=== PATIENT | female | born 1985 | race Hispanic/Latino ===

== ENCOUNTER 2019-05-17 23:25 | Emergency (ER) | payer SELFPAY ==
[2019-05-18] MEDS ORDERED: TETANUS & DIPHTHERIA TOX,ADULT 0.5 ML VIAL ONE (00:14)
[2019-05-18] MEDS ORDERED: HYDROCODONE/APAP 10/325 TAB ONE (00:14)
[2019-05-18] MEDS ORDERED: AMOX/K CLAV 875 MG TAB ONE (00:14)
[2019-05-18] MEDS ORDERED: LIDOCAINE 1% 20 ML MDV ONE (00:50)
[2019-05-18] MEDS ORDERED: FENTANYL CITR 100 MCG/2 ML ONE (01:30)
--- NOTE | 2019-05-18 01:59 | EDPHYS ---
Physician Documentation [facility] Name: Emelia Haskins Age: 33 yrs Sex: Female : 1985 Arrival Date: 05/17/2019 Time: 23:37 Bed 7 Private MD: ED Physician Ryan Teresa HPI: 05/17 23:47 This 33 yrs old Female presents to ER via Ambulatory with complaints of Dog jmm Bite. 23:47 The patient was bitten on the left quadriceps. Onset: The symptoms/episode jmm began/occurred acutely, just prior to arrival. Animal information: is unknown. 23:47 Secondary to the bite the patient reports multiple lacerations. jmm 23:47 Associated signs and symptoms: Pertinent positives: pain at site, Pertinent negatives: jmm bony tenderness, fever, loss of consciousness. This is a 33 year old female with no chronic medical conditions that presents to the ED with complaints of left leg pain. patient states she was [place] . 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 - Social history:: Smoking status: Patient/guardian denies using tobacco. - Ebola Screening: : No symptoms or risks identified at this time. ROS: 23:47 Constitutional: Negative for fever, chills, and weight loss, Cardiovascular: Negative jmm for chest pain, palpitations, and edema, Respiratory: Negative for shortness of breath, cough, wheezing, and pleuritic chest pain. 23:47 MS/extremity: Positive for pain, swelling. 23:47 All other systems are negative. Exam: 23:47 Constitutional: This is a well developed, well nourished patient who is awake, alert, jmm and in no acute distress. Head/Face: atraumatic. Eyes: EOMI, no conjunctival erythema appreciated ENT: Moist Mucus Membranes Neck: Trachea midline, Supple Chest/axilla: Normal chest wall appearance and motion. Cardiovascular: Regular rate and rhythm. No edema appreciated Respiratory: Normal respirations, no respiratory distress appreciated Abdomen/GI: Non distended, soft Back: Normal ROM 23:47 Musculoskeletal/extremity: 2 cm laceration noted to the left thigh, smaller lacerations noted medially, no active bleeding appreciated. 23:47 Skin: lacerations noted to the left thigh. 23:47 Neuro: Orientation: is normal, Mentation: is normal, Memory: is normal. 23:47 Psych: Behavior/mood is pleasant, cooperative. Vital Signs: 23:48 BP 149 / 96; Pulse 107; Resp 18 S; Temp 98.5(O); Pulse Ox 100% on R/A; Weight 92.99 kg bb (R); Height 5 ft. 1 in. (154.94 cm) (R); Pain 8/10; 05/18 00:22 BP 126 / 74; Pulse 124; Pulse Ox 100% on R/A; ak1 01:50 BP 123 / 79; Pulse 83; Resp 16 S; Temp 98.3(O); Pulse Ox 98% on R/A; Pain 0/10; bb 05/17 23:48 Body Mass Index 38.73 (92.99 kg, 154.94 cm) bb MDM: 05/17 23:47 Patient medically screened. [facility] 05/18 01:57 Data reviewed: vital signs, nurses notes. Counseling: I had a detailed discussion with candi the patient and/or guardian regarding: the historical points, exam findings, and any diagnostic results supporting the discharge/admit diagnosis, radiology results, the need for outpatient follow up, to return to the emergency department if symptoms worsen or persist or if there are any questions or concerns that arise at home. 01:57 ED course: Wound copiously irrigated. patient advised of the risk of infection and jmm given strict return precautions. . 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 Exp: ak1 01/26/2021. Lot #: [id number]. } Route: IM; Site: right deltoid; 00:52 Follow up: Response: No adverse reaction bb 00:07 Drug: Augmentin 875 mg Route: PO; ak1 00:53 Follow up: Response: No adverse reaction bb 00:45 Drug: Lidocaine (1 %) 20 ml {Note: administered by Primo MAGDALENO to affected area.} bb Volume: 20 ml; Route: Infiltration; 00:53 Follow up: Response: No adverse reaction bb 01:19 Drug: fentaNYL (PF) 50 mcg Route: IM; Site: right ventrogluteal; bb 01:49 Follow up: Response: No adverse reaction; Pain is decreased bb Disposition: 08:24 Co-signature as Attending Physician, Ryan Teresa MD I agree with the assessment and rebeka plan of care. Disposition: 05/18/19 01:58 Discharged to Home. Impression: Dog Bite. - Condition is Stable. - Discharge Instructions: Animal Bite. - Prescriptions for Augmentin 875- 125 mg Oral Tablet - take 1 tablet by ORAL route every 12 hours for 10 days; 20 tablet. - Medication Reconciliation Form, Thank You Letter, Antibiotic Education, Prescription Opioid Use, Work release form form. - Follow up: Mikel Foote MD; When: 2 - 3 days; Reason: Recheck today's complaints, Continuance of care, Re-evaluation by your physician. Signatures: Dispatcher [employer] EDMS Ryan Teresa MD MD cha Mickail, Joel, PA PA jmm Ballard, Brenda, RN RN Joann Curran RN RN ak1 Corrections: (The following items were deleted from the chart) 02:12 01:58 05/18/2019 01:58 Discharged to Home. Impression: Dog Bite. Condition is Stable. ak1 Forms are Medication Reconciliation Form, Thank You Letter, Antibiotic Education, Prescription Opioid Use. Follow up: Mikel Foote; When: 2 - 3 days; Reason: Recheck today's complaints, Continuance of care, Re-evaluation by your physician. candi
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
[2019-05-18 03:19] VITALS: BP 123/79; TEMP 98.3; O2SAT 98
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
== END 2019-05-18 02:12 | disposition home or self-care (01) ==
LOC: ER 23:25
DX: S70.372A Other superficial bite of left thigh, initial encounter (principal); W54.0XXA Bitten by dog, initial encounter; Y93.02 Activity, running; Y92.832 Beach as the place of occurrence of the external cause; Z23 Encounter for immunization
CPT/HCPCS: 90471; 96372; 99284; J3010

== ENCOUNTER 2019-09-03 15:20 | Emergency (ER) | payer SELFPAY ==
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
[2019-09-03 19:12] VITALS: BP 153/85; TEMP 97.8; O2SAT 100
== END 2019-09-03 18:20 | disposition home or self-care (01) ==
LOC: ER 15:20
DX: G89.11 Acute pain due to trauma (principal); V43.53XA Car driver injured in collision with pick-up truck in traffic accident, initial encounter; Y93.89 Activity, other specified; Y92.410 Unspecified street and highway as the place of occurrence of the external cause
CPT/HCPCS: 71046; 72040; 99283

== ENCOUNTER → 2023-12-22 | Emergency (ER) | payer SELFPAY ==
[~2023-12-22] MED LIST: ASPIRIN 81 MG CHEWABLE TABLET ONE; FENTANYL CITR 100 MCG/2 ML ONE; LORazepam 2 MG/ML VIAL ONE; MORPHINE 2 MG/ML SYR ONE; ONDANSETRON 4 MG/2 ML VIAL ONE; POTASSIUM CL SA 10 MEQ TAB PO ONE
--- OUTSIDE RECORDS SUMMARY | 2023-12-22 17:23 | XMS REPORT | Continuity of Care Document ---
Author Name Unknown Address [address] [facility] [place] [address] [facility] Address [address] [facility] [place] [address] Care Team Providers Care Fire Safety Manager Name Role Phone Unavailable Unavailable Unavailable Encounters Start Date/Time End Date/Time Encounter Type Admission Type Attending Clinicians Care Facility Care Department Encounter ID Source 2023-05-13 15:35:16 2023-05-13 15:35:16 Outpatient [facility] [id number] Santiago Herrera 2023-05-12 16:45:00 2023-05-12 16:45:00 Outpatient [facility] [id number] Santiago Herrera Results Test Description Test Time Test Comments Results Result Co mments Source HPV HIGH RISK WITH GENOTYPE, [id number] 11:28:59* Test Item Value Reference Range Interpretation Comme nts HPV HIGH RISK INTERP (test code = 54557) NEGATIVE NEGATIVE HPV 16 (test code = 70044) NEGATIVE HPV 18 (test code = 05790) NEGATIVE HPV, HR, OTHER GENOTYPES (test code = 32038) NEGATIVE Testing methodol ogy is real-time PCR utilizing hydrolysis probes with the Lisseth Martha 4800 system. The test individually detects genotypes 16 and 18, as well as the other 12 high risk types (31,33,35,39,45,51,52,56 ,58,59,66,68). The expected result is negative. A negative result does not rule out the presence of HPV not included in the genotype set, a low level of infection or specimen sampling error. CT/NG, NAAT, [id number] 20:26:14* Test Item Value Reference Range Interpretation Comme nts CHLAMYDIA, NAAT, URINE (test code = 04329) NEGATIVE NEGATIVE Testing is perfo rmed with Lisseth MARTHA 6800/8800 systems usingreal-time polymerase chain reaction (PCR) method. A negative result does not exclude low level infection, specimensampling error, or collection error. GONORRHEA, NAAT, URINE (test code = 54352) NEGATIVE NEGATIVE Testing is perfo rmed with Lisseth MARTHA 6800/8800 systems usingreal-time polymerase chain reaction (PCR) method. A negative result does not exclude low level infection, specimensampling error, or collection error. UNLESS OTHERWISE INDICATED, ALL TESTING PERFORMED AT [facility]. [address] [place] [address] EMBEDDED SOFTWARE DESIGN ENGINEER: SHAYY GUZMAN M.D. CLIA NUMBER [id number] [place]. [id number] CT/NG, NAAT, [id number] 11:16:16* Test Item Value Reference Range Interpretation Comme nts CHLAMYDIA, NAAT, THINPREP (test code = 89094) NEGATIVE NEGATIVE A negative resul t does not exclude low level infection, specimensampling error, or collection error. Testing is performed with the Lisseth Martha 6800/8800 systems usingreal-time Polymerase Chain Reaction (PCR) method. GONORRHEA, NAAT, THINPREP (test code = 40698) NEGATIVE NEGATIVE A negative resul t does not exclude low level infection, specimensampling error, or collection error. Testing is performed with the Lisseth Martha 6800/8800 systems usingreal-time Polymerase Chain Reaction (PCR) method. UNLESS OTHERWISE INDICATED, ALL TESTING PERFORMED AT [facility]. [address] [place] [address] EMBEDDED SOFTWARE DESIGN ENGINEER: SHAYY GUZMAN M.D. CLIA NUMBER [id number] [place]. [id number] TSH, THIRD [id number] 05:27:06* Test Item Value Reference Range Interpretation Comme nts TSH, THIRD GENERATION (test code = 2821) 0.633 UIU/ML 0.400-4.100 HIV 1/2 4TH GEN, RFLX [id number] 05:09:58* Test Item Value Reference Range Interpretation Comme nts HIV 1/2 4TH GEN, RFLX CONF ( test code = 3514) NON-REACTIVE NON-REACTIVE HEPATITIS PANEL, [id number] 05:09:58* Test Item Value Reference Range Interpretation Comme nts HEPATITIS A IgM (test code = 94791) NON-REACTIVE NON-REACTIVE HEPATITIS B CORE IgM (test code = 4644) NON-REACTIVE NON-REACTIVE HEPATITIS B SURF AG (test code = 2739) NON-REACTIVE NON-REACTIVE HEPATITIS C ANTIBODY (test code = 4675) NON-REACTIVE NON-REACTIVE INTERPRETATION HEPATITIS A: (test code = 2552) (NOTE) Hepatitis A serology shows no evidence of acute hepatitis A. INTERPRETATION HEPATITIS B: (test code = 72954) (NOTE) Hepatitis B serology shows no evidence of acute hepatitis B andno indication of exposure to hepatitis B virus in the previous rubio eight months. INTERPRETATION HEPATITIS C: (test code = 16509) (NOTE) Hepatitis C serology shows no evidence of exposure to hepatitisC virus at this time. It can take up to 12 months after exposure tothe hepatitis C virus for antibodies to become detectable in the blood in certain patients. RPR REFLEX TO T. PALLIDUM - [id number] 03:37:56* Test Item Value Reference Range Interpretation Comme nts RPR (test code = 75443) NON-REACTIVE NON-REACTIVE RPR TITER (test code = 3500) NOT INDIC. TITER NOT INDIC.
[2023-12-22 17:47] LABS: Absolute Lymphocytes (CBC) 2.1 K/uL (0.7-4.9); Hematocrit 39.6 % (36.0-45.0); Lymphocytes % 31.2 % (15.3-44.8); MCV 84.5 fL (80-100); MPV 8.3 fL (7.6-11.3); Platelets 245 thou/uL (152-406); RBC Red Blood Cell Count 4.68 M/uL (3.86-4.86)
[2023-12-22 18:13] LABS: Albumin 4.2 g/dL (3.4-5.0); Bilirubin Direct 0.5 mg/dL (0-0.2); Bilirubin Indirect, Calculated 2.3 mg/dL (0.2-0.8); Bilirubin Total 2.8 mg/dL (0.2-1.0); Magnesium 2.2 mg/dL (1.6-2.4); Potassium 3.1 mEq/L (3.5-5.1); Protein, Total 8.1 g/dL (6.4-8.2); Troponin High Sensitivity 6.4 pg/mL (<58.9)
--- NOTE | 2023-12-22 18:28 | RAD REPORT ---
EXAM DESCRIPTION: RAD - Chest Single View - 12/22/2023 6:23 pm CLINICAL HISTORY: CHEST PAIN Chest pain. COMPARISON: <Comparisons> FINDINGS: Portable technique limits examination quality. The lungs are grossly clear. The heart is normal in size. No displaced fractures. IMPRESSION: No acute intrathoracic process suspected.
--- NOTE | 2023-12-22 19:37 | RAD REPORT ---
EXAM DESCRIPTION: CT - Head Brain Wo Cont - 12/22/2023 7:32 pm CLINICAL HISTORY: PAIN Headache, drowsiness COMPARISON: <Comparisons> TECHNIQUE: All CT scans are performed using dose optimization technique as appropriate and may inclu de automated exposure control or mA/KV adjustment according to patient size. FINDINGS: No intracranial hemorrhage, hydrocephalus or extra-axial fluid collection.No areas of brai n edema or evidence of midline shift. The paranasal sinuses and mastoids are clear. The calvarium is intact. IMPRESSION: No acute intracranial abnormality.
[2023-12-22 21:17] LABS: Specific Gravity 1.008 (1.005-1.030); Urine Bilirubin NEGATIVE (Negative); Urine Blood Negative (Negative); Urine Clarity Clear (Clear); Urine Color Light-Yellow (Yellow); Urine Glucose NEGATIVE (Negative); Urine Protein NEGATIVE (Negative); Urine Urobilinogen Normal (Normal)
[2023-12-22 21:22] LABS: SARS-CoV-2 Antigen Rapid Res Negative (Negative)
[2023-12-22 21:35] LABS: Barbiturates NEGATIVE (NEGATIVE); Benzodiazepines POSITIVE (NEGATIVE); Cocaine NEGATIVE (NEGATIVE); METHAMPHETAM POSITIVE (NEGATIVE); Methadone NEGATIVE (NEGATIVE); Opiates NEGATIVE (NEGATIVE); Phencyclidine NEGATIVE (NEGATIVE); THC Cannibis POSITIVE (NEGATIVE)
--- NOTE | 2023-12-22 21:56 | ER ---
Nurse's Notes [facility] Name: Emelia Haskins Age: 38 yrs Sex: Female : 1985 Arrival Date: 12/22/2023 Time: 17:20 Bed 20 Private MD: Diagnosis: Chest pain, unspecified Presentation: 12/22 17:25 Chief complaint: Patient states: she had an anxiety attack yesterday, and then started ap3 having chest pain today along with shortness of breath, arm tingling and reports "I just don't feel right". Coronavirus screen: At this time, the client does not indicate any symptoms associated with coronavirus-19. Ebola Screen: No symptoms or risks identified at this time. Initial Sepsis Screen: Does the patient meet any 2 criteria? HR > 90 bpm. Does the patient have a suspected source of infection? No. Patient's initial sepsis screen is negative. Risk Assessment: Do you want to hurt yourself or someone else? Patient reports no desire to harm self or others. Onset of symptoms was December 22, 2023. 17:25 Method Of Arrival: Ambulatory ap3 17:25 Acuity: FAIZA 2 ap3 Triage Assessment: 17:27 General: Appears in no apparent distress. Behavior is cooperative, appropriate for age, ap3 anxious. Pain: Complains of pain in chest Pain currently is 9 out of 10 on a pain scale. Quality of pain is described as heavy, tightness. Neuro: Level of Consciousness is awake, alert, obeys commands, Oriented to person, place, time, situation, Appropriate for age. Cardiovascular: Reports chest pain, Patient's skin is warm and dry. Respiratory: Airway is patent Respiratory effort is even, unlabored, Respiratory pattern is regular, symmetrical. Historical: - Allergies: 17:27 No Known Allergies; ap3 - PMHx: 17:27 Anxiety; ap3 - Immunization history:: Client reports receiving the 2nd dose of the Covid vaccine, Flu vaccine is up to date. - Social history:: Smoking status: Patient denies any tobacco usage or history of. Patient uses alcohol, only on a social basis. Screenin:28 [facility] ED Fall Risk Assessment (Adult) History of falling in the last 3 months, ap3 including since admission No falls in past 3 months (0 pts). Abuse screen: Denies threats or abuse. Nutritional screening: No deficits noted. Tuberculosis screening: No symptoms or risk factors identified. Assessment: 17:29 Pain: Pain began gradually. ap3 18:07 General: Behavior is anxious. as6 19:20 General: Appears uncomfortable, Behavior is cooperative, anxious. Pain: Complains of ha1 pain in chest and left arm Pain radiates to left arm Pain currently is 8 out of 10 on a pain scale. Quality of pain is described as pressure, throbbing. Neuro: Level of Consciousness is awake, alert, obeys commands, Oriented to person, place, time, situation, Moves all extremities. Full function. Cardiovascular: Reports chest pain, shortness of breath, Heart tones S1 S2 present Capillary refill < 3 seconds Patient's skin is warm and dry. Respiratory: Airway is patent Respiratory effort is even, unlabored, Respiratory pattern is regular, symmetrical. GI: No signs and/or symptoms were reported involving the gastrointestinal system. 20:20 Reassessment: Patient and/or family updated on plan of care and expected duration. Pain ha1 level reassessed. Patient is alert, oriented x 3, equal unlabored respirations, skin warm/dry/pink. 22:20 Reassessment: Patient and/or family updated on plan of care and expected duration. Pain ha1 level reassessed. Patient is alert, oriented x 3, equal unlabored respirations, skin warm/dry/pink. Patient states feeling better. Patient states symptoms have improved. Vital Signs: 17:25 Pulse 92; Resp 22; Temp 97.7; Pulse Ox 100% ; Weight 85.28 kg; Height 5 ft. 1 in. ; ap3 Pain 9/10; 17:28 BP 128 / 95; ap3 19:30 BP 142 / 87; Pulse 60; Resp 17 S; Pulse Ox 100% on R/A; ha1 20:30 BP 160 / 74; Pulse 55; Resp 16; Pulse Ox 100% on R/A; cg3 21:30 BP 132 / 79; Pulse 61; Resp 17 S; Pulse Ox 100% on R/A; ha1 22:30 BP 142 / 83; Pulse 58; Resp 17 S; Pulse Ox 100% on R/A; ha1 17:25 Body Mass Index 35.52 (85.28 kg, 154.94 cm) ap3 17:25 Pain Scale: Adult ap3 ED Course: 17:21 Patient arrived in ED. gm2 17:24 Mariajose Crockett FNP-C [facility] kb 17:24 Bradley Gomez MD is Attending Physician. kb 17:27 Triage completed. ap3 17:29 Arm band placed on right wrist. ap3 17:29 Patient maintains SpO2 saturation greater than 95% on room air. ap3 17:38 Initial lab(s) drawn, by me, sent to lab. Inserted saline lock: 20 gauge in right ap3 antecubital area, using aseptic technique. Blood collected. 18:25 XRAY Chest (1 view) In Process Unspecified. EDMS 19:00 Patient has correct armband on for positive identification. Bed in low position. Call ha1 light in reach. Side rails up X 1. Adult w/ patient. Provided Education on: decreasing anxiety . Client placed on continuous cardiac and pulse oximetry monitoring. NIBP monitoring applied. 19:33 CT Head Brain wo Cont In Process Unspecified. EDMS 19:54 Kiki Hardin, RN is Primary Nurse. ha1 22:31 No provider procedures requiring assistance completed. IV discontinued, intact, ha1 bleeding controlled, No redness/swelling at site. Pressure dressing applied. 22:34 Provided Education on: Discharge instructions. jw7 Administered Medications: 17:58 Drug: Aspirin PO Chewable Tablet 324 mg PO once; 81 mg tablets x 4 Route: PO; ap3 18:06 Drug: Ativan IVP 1 mg IVP once Route: IVP; Site: right antecubital; as6 20:04 Drug: Potassium Chloride PO 40 mEq PO once Route: PO; as6 20:04 Drug: morphine IVP or IV 2 mg IVP once over 4 mins Route: IVP; Infused Over: 4 mins; as6 Site: right antecubital; 20:04 Drug: Ondansetron IVP 4 mg IVP once; over 2 minutes Route: IVP; Site: right antecubital;as6 21:21 Drug: fentaNYL (PF) IVP 25 mcg IVP once Route: IVP; Site: right antecubital; ha1 Medication: 22:32 VIS not applicable for this client. ha1 Outcome: 21:56 Discharge ordered by . kb 22:32 Discharged to home ambulatory, with family, ha1 22:32 Condition: stable 22:32 Discharge instructions given to patient, family, Instructed on discharge instructions, follow up and referral plans. Demonstrated understanding of instructions, follow-up care, 22:34 Patient left the ED. jw7 Signatures: Dispatcher [employer] EDMariajose Lucas FNP-C FNP-Esthela Ardon RN RN ap3 Josue Vallejo RN RN as6 Diana Rubin RN RN jw7 Kiki Hardin RN RN [facility] Anna Rider [facility] Sandra Costello [facility]
--- NOTE | 2023-12-22 21:56 | EDPHYS ---
Physician Documentation [facility] Name: Emelia Haskins Age: 38 yrs Sex: Female : 1985 Arrival Date: 12/22/2023 Time: 17:20 Bed 20 Private MD: ED Physician Bradley Gomez HPI: 12/22 21:46 This 38 yrs old Female presents to ER via Ambulatory with complaints of Chest kb Pain. 21:46 Patient is a 38-year-old female with a history of anxiety who presents for chest pain kb that started last night. States it went away so she was able to go to sleep but came back at 9:00 this morning. Denies shortness of breath, nausea, vomiting. Reports headache. Historical: - Allergies: 17:27 No Known Allergies; ap3 - PMHx: 17:27 Anxiety; ap3 - Immunization history:: Client reports receiving the 2nd dose of the Covid vaccine, Flu vaccine is up to date. - Social history:: Smoking status: Patient denies any tobacco usage or history of. Patient uses alcohol, only on a social basis. ROS: 21:45 Constitutional: Negative for fever, chills, and weight loss, kb 21:45 Cardiovascular: Positive for chest pain, 21:45 Neuro: Positive for headache, 21:45 All other systems are negative, Exam: 21:45 Constitutional: This is a well developed, well nourished patient who is awake, alert, kb and in no acute distress. Head/Face: Normocephalic, atraumatic. ENT: Moist Mucous membranes Cardiovascular: Regular rate Respiratory: Respirations even and unlabored. No increased work of breathing. Talking in full sentences Abdomen/GI: Soft, non-tender. No distention Skin: Warm, dry with normal turgor. Normal color. MS/ Extremity: Pulses equal, no cyanosis. Neurovascular intact. Full, normal range of motion. Neuro: Awake and alert, GCS 15, oriented to person, place, time, and situation. Moves all extremities. Normal gait. 21:45 Constitutional: The patient appears anxious, Vital Signs: 17:25 Pulse 92; Resp 22; Temp 97.7; Pulse Ox 100% ; Weight 85.28 kg; Height 5 ft. 1 in. ; ap3 Pain 9/10; 17:28 BP 128 / 95; ap3 19:30 BP 142 / 87; Pulse 60; Resp 17 S; Pulse Ox 100% on R/A; ha1 20:30 BP 160 / 74; Pulse 55; Resp 16; Pulse Ox 100% on R/A; cg3 21:30 BP 132 / 79; Pulse 61; Resp 17 S; Pulse Ox 100% on R/A; ha1 22:30 BP 142 / 83; Pulse 58; Resp 17 S; Pulse Ox 100% on R/A; ha1 17:25 Body Mass Index 35.52 (85.28 kg, 154.94 cm) ap3 17:25 Pain Scale: Adult ap3 MDM: 17:24 Patient medically screened. kb 19:10 ED course: Upon reexamination patient appears more comfortable but is complaining of kb increased pain to head. Family states patient was reporting that she was seeing a little girl sitting in the chair in the room but there was no one there. Patient states that her pain is still in the left chest and she is concerned because she is never felt that before. CT head ordered as well as UDS. Will repeat troponin. 21:45 Data reviewed: vital signs, nurses notes. kb 21:48 Consideration of Admission/Observation Escalation of care including kb admission/observation considered. Admission considered, serial troponins normal, heart score 0.. 21:55 Differential diagnosis: abnormal EKG, acute myocardial infarction, anxiety, coronary kb artery disease chest wall pain, pulmonary embolus. The patient was given aspirin in the Emergency Department. Test considered but Not performed: CT: CT chest considered but D-dimer normal, respirations even unlabored, lungs clear bilaterally, oxygen saturation 100% on room air, patient denies shortness of breath. Counseling: I had a detailed discussion with the patient and/or guardian regarding the historical points, exam findings, and any diagnostic results supporting the discharge/admit diagnosis, lab results, radiology results, the need for outpatient follow up, a sed special education teacher, a family practitioner, to return to the emergency department if symptoms worsen or persist or if there are any questions or concerns that arise at home. 12/22 17:28 Order name: Basic Metabolic Panel; Complete Time: 18:19 kb 12/22 17:28 Order name: CBC with Diff; Complete Time: 17:59 kb 12/22 17:28 Order name: D-Dimer; Complete Time: 18:19 kb 12/22 17:28 Order name: LFT's; Complete Time: 18:19 kb 12/22 17:28 Order name: Magnesium; Complete Time: 18:19 kb 12/22 17:28 Order name: NT PRO-BNP; Complete Time: 18:19 kb 12/22 17:28 Order name: Troponin HS; Complete Time: 18:19 kb 12/22 19:04 Order name: SARS-COV-2 Antigen Rapid; Complete Time: 21:39 kb 12/22 19:04 Order name: Urinalysis w/ reflexes; Complete Time: 21:18 kb 12/22 19:04 Order name: UDS; Complete Time: 21:39 kb 12/22 20:19 Order name: Troponin High Sensitivity; Complete Time: 21:39 kb 12/22 17:28 Order name: XRAY Chest (1 view); Complete Time: 18:30 kb 12/22 19:04 Order name: CT Head Brain wo Cont; Complete Time: 19:39 kb 12/22 17:28 Order name: EKG; Complete Time: 17:28 kb 12/22 17:28 Order name: Cardiac monitoring; Complete Time: 18:22 kb 12/22 17:28 Order name: EKG - Nurse/Tech; Complete Time: 17:44 kb 12/22 17:28 Order name: IV Saline Lock; Complete Time: 17:38 kb 12/22 17:28 Order name: Labs collected and sent; Complete Time: 17:38 kb 12/22 17:28 Order name: O2 Per Protocol; Complete Time: 18:22 kb 12/22 17:28 Order name: O2 Sat Monitoring; Complete Time: 18:22 kb Administered Medications: 17:58 Drug: Aspirin PO Chewable Tablet 324 mg PO once; 81 mg tablets x 4 Route: PO; ap3 18:06 Drug: Ativan IVP 1 mg IVP once Route: IVP; Site: right antecubital; as6 20:04 Drug: Potassium Chloride PO 40 mEq PO once Route: PO; as6 20:04 Drug: morphine IVP or IV 2 mg IVP once over 4 mins Route: IVP; Infused Over: 4 mins; as6 Site: right antecubital; 20:04 Drug: Ondansetron IVP 4 mg IVP once; over 2 minutes Route: IVP; Site: right antecubital;as6 21:21 Drug: fentaNYL (PF) IVP 25 mcg IVP once Route: IVP; Site: right antecubital; ha1 Disposition: 12/23 09:06 Co-signature as Attending Physician, Bradley Gomez MD I reviewed the patient's care rn provided by the Advanced Practice Provider and agree with the diagnosis and treatment plan. Disposition Summary: 12/22/23 21:56 Discharge Ordered Notes: Location: Home kb Condition: Stable kb Diagnosis - Chest pain, unspecified kb Followup: kb - With: Emergency Department - When: As needed - Reason: Worsening of condition Followup: kb - With: Private Physician - When: 2 - 3 days - Reason: Recheck today's complaints, Continuance of care, Re-evaluation by your physician Discharge Instructions: - Discharge Summary Sheet kb - Nonspecific Chest Pain, Adult, [id number] kb Forms: - Medication Reconciliation Form kb - Thank You Letter kb - Antibiotic Education kb - Prescription Opioid Use kb - Patient Portal Instructions kb - Leadership Thank You Letter kb Signatures: Dispatcher [employer] EDMariajose Lucas, ADULT NURSE PRACTITIONER-C ADULT NURSE PRACTITIONER-Bradley Hunt MD MD rn Esthela Gilman RN RN ap3 Josue Vallejo RN RN as6 Kiki Hardin, RN RN ha1
[2023-12-23 02:44] VITALS: BP 142/83; TEMP 97.7; O2SAT 100
--- NOTE | 2023-12-23 16:27 | EKG ---
Test Date: 2023-12-22 Test Time: 17:42:16 Rn Midwife: MEASUREMENT RESULTS: Intervals: Rate: 89 TX: 148 QRSD: 78 QT: 392 QTc: 476 [place]: P: 46 TX: 148 QRS: 55 T: 48 INTERPRETIVE STATEMENTS: Normal sinus rhythm Normal ECG No previous ECG available for comparison Electronically Signed On 12-23-23 16:25:15 BUILDING PRESSURE WASHER by Ludin Kinsey
== END ==
LOC: ER 17:20
DX: R07.9 Chest pain, unspecified (principal); R51.9 Headache, unspecified; Z11.52 Encounter for screening for COVID-19
CPT/HCPCS: 36415; 70450; 71045; 80048; 80076; 80307; 81003; 83735; 83880; 84484; 85025; 85379; 87811; 93005; J2270; J2405; J3010

== ENCOUNTER 2024-08-04 16:29 | Emergency (ER) | payer SELFPAY ==
--- OUTSIDE RECORDS SUMMARY | 2024-08-04 16:32 | XMS REPORT | Continuity of Care Document ---
Author Name Unknown Address [address] [facility] [place] [address] [facility] Address [address] 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 Name Role Phone PCP, PATIENT DOES NOT HAVE A Primary Care Physic reed Unavailable PAULA CAMPBELL Attending Clinician Unavailable PAULA CAMPBELL Attending Clinician Unavailable THAIS SARAVIA Admitting Clinician Unavailab le Allergies, Adverse Reactions, Alerts Allergy Name Allergy Type Status Severity Reaction(s) Onset Date Inactive Date Treating Clinician Comments Source NO KNOWN ALLERGIE S Drug Class Active [facility] Social History Social Habit Start Date Stop Date Quantity Comments Source Sexual orientation [facility] Sex assigned at 1985 00:00:00 1985 00:00:00 [facility] Smoking Status Start Date Stop Date Source Tobacco smoking consumption unknown [facility] Medications Ordered Medication Name Filled Medication Name Start Date Stop Date Current Medication? Ordering Clinician Indication Dosage Frequency Signature (SIG) Comments Components Source ibuprofen (IBU) tablet 800 mg 06-01 16:45: 00 06-01 16:46 :00 No 800mg 800 mg, Oral, ONCE, 1 dose, On Wed06/01/24 at 1145, SENAIT [facility] ibuprofen 800 mg tablet 06-01 00:00: 00 Yes [id number] 800mg Take 1 tablet by mouth 3 (three) times daily as needed for Pain (scale 4-6). [facility] Vital Signs Vital Name Observation Time Observation Value Comments Prashant cook Systolic blood pressure 2024-06-01 17:54:08 127 mm[Hg] [facility] Diastolic blood pressure 2024-06-01 17:54:08 82 mm[Hg] [facility] Heart rate 2024-06-01 17:54:08 71 /min [facility] Body temperature 2024-06-01 17:54:08 37.33 Pattie [facility] Respiratory rate 2024-06-01 17:54:08 16 /min [facility] Oxygen saturation in Arterial blood by Pulse oximetry 2024-06-01 17:54:08 99 /min [facility] Body height 2024-06-01 16:42:00 154.9 cm [facility] Body weight 2024-06-01 16:42:00 79.606 kg [facility] BMI 2024-06-01 16:42:00 33.16 kg/m2 [facility] Encounters Start Date/Time End Date/Time Encounter Type Admission Type Attending Clinicians Care Facility Care Department Encounter ID Source 2024-06-01 11:39:00 2024-06-01 13:06:00 Emergency X PAULA CAMPBELL [facility] ERT [id number] [facility] 2024-06-01 11:39:00 2024-06-01 13:06:00 Emergency Paula Campbell [facility] [id number] [facility] 2023-05-13 15:35:16 2023-05-13 15:35:[address] [facility] [id number] Santiago Herrera 2023-05-12 16:45:00 2023-05-12 16:45:00 Outpatient [facility] [id number] Santiago Herrera Results Test Description Test Time Test Comments Results Result Co mments Source HPV HIGH RISK WITH GENOTYPE, [id number] 11:28:59* Test Item Value Reference Range Interpretation Comme nts HPV HIGH RISK INTERP (test code = 89290) NEGATIVE NEGATIVE HPV 16 (test code = 73064) NEGATIVE HPV 18 (test code = 52685) NEGATIVE HPV, HR, OTHER GENOTYPES (test code = 35382) NEGATIVE Testing methodol ogy is real-time PCR [...] infection or specimen sampling error. CT/NG, NAAT, [id number] 20:26:14* Test Item Value Reference Range Interpretation Comme nts CHLAMYDIA, NAAT, URINE (test code = 61792) NEGATIVE NEGATIVE Testing is perfo rmed with Lisseth MARTHA 6800/8800 systems usingreal-time polymerase chain reaction (PCR) method. A negative result does not exclude low level infection, specimensampling error, or collection error. GONORRHEA, NAAT, URINE (test code = 94611) NEGATIVE NEGATIVE Testing is perfo rmed with Lisseth MARTHA 6800/8800 systems usingreal-time polymerase chain reaction (PCR) method. A negative result does not exclude low level infection, specimensampling error, or collection error. UNLESS OTHERWISE INDICATED, ALL TESTING PERFORMED AT [facility] [address] [place] [address] SOCIAL MEDIA EDITOR: SHAYY GUZMAN M.D. [place] NUMBER [id number] [facility] [place]. [id number] CT/NG, NAAT, [id number] 11:16:16* Test Item Value Reference Range Interpretation Comme nts CHLAMYDIA, NAAT, THINPREP (test code = 75973) NEGATIVE NEGATIVE A negative resul t does not exclude low level infection, specimensampling error, or collection error. Testing is performed with the Lisseth Martha 6800/8800 systems usingreal-time Polymerase Chain Reaction (PCR) method. GONORRHEA, NAAT, THINPREP (test code = 77885) NEGATIVE NEGATIVE A negative resul t does not exclude low level infection, specimensampling error, or collection error. Testing is performed with the Lisseth Martha 6800/8800 systems usingreal-time Polymerase Chain Reaction (PCR) method. UNLESS OTHERWISE INDICATED, ALL TESTING PERFORMED AT [facility] [address] [place] [address] SOCIAL MEDIA EDITOR: SHAYY GUZMAN M.D. [place] NUMBER [id number] [facility] [place] [place]. [id number] TSH, THIRD [id number] 05:27:06* Test Item Value Reference Range Interpretation Comme nts TSH, THIRD GENERATION (test code = 2821) 0.633 UIU/ML 0.400-4.100 HIV 1/2 4TH GEN, RFLX [id number] 05:09:58* Test Item Value Reference Range Interpretation Comme nts HIV 1/2 4TH GEN, RFLX CONF ( test code = 3514) NON-REACTIVE NON-REACTIVE HEPATITIS PANEL, [id number] 05:09:58* Test Item Value Reference Range Interpretation Comme nts HEPATITIS A IgM (test code = 73499) NON-REACTIVE NON-REACTIVE HEPATITIS B CORE IgM (test code = 4644) NON-REACTIVE NON-REACTIVE HEPATITIS B SURF AG (test code = 2739) NON-REACTIVE NON-REACTIVE HEPATITIS C ANTIBODY (test code = 4675) NON-REACTIVE NON-REACTIVE INTERPRETATION HEPATITIS A: (test code = 2552) (NOTE) Hepatitis A serology shows no evidence of acute hepatitis A. INTERPRETATION HEPATITIS B: (test code = 04752) (NOTE) Hepatitis B serology shows no evidence of acute hepatitis B andno indication of exposure to hepatitis B virus in the previous rubio eight months. INTERPRETATION HEPATITIS C: (test code = 23914) (NOTE) Hepatitis C serology shows no evidence of exposure to hepatitisC virus at this time. It can take up to 12 months after exposure tothe hepatitis C virus for antibodies to become detectable in the blood in certain patients. RPR REFLEX TO T. PALLIDUM - [id number] 03:37:56* Test Item Value Reference Range Interpretation Comme nts RPR (test code = 07208) NON-REACTIVE NON-REACTIVE RPR TITER (test code = 3500) NOT INDIC. TITER NOT INDIC. Notes Date/Time Note Provider Source 2024-06-01 13:04:32 Patient given discharge instructions on sprain of right ankle. Pt given prescription X 1 for ibuprofen. Pt advised to follow up with orthopedic. Pt left ER via wheelchair. No signs of distress. [facility]enia 2024-06-01 11:37:37 Patient states: "I was running last night and I was trying to cross the street and I messed up my ankle. When I stepped I felt a pop and I looked down and it was swollen" Reports pain in right ankle. Reports she took 600 mg ibuprofen at 0300 and iced her ankle. [facility] Disenia
[2024-08-04] MEDS ORDERED: FOLIC ACID 5 MG/ML VIAL ONE (16:59)
[2024-08-04] MEDS ORDERED: NA CHLORIDE 0.9% 1,000 ML ONE (17:00)
[2024-08-04 17:09] LABS: Absolute Basophils 0.1 K/uL (0-0.5); Absolute Eosinophils 0.1 K/uL (0-0.5); Absolute Lymphocytes (CBC) 1.8 K/uL (0.7-4.9); Absolute Monocytes 0.6 K/uL (0.1-1.3); Absolute Neutrophil 4.9 K/uL (1.8-8.0); Basophils % 0.8 % (0-1.3); Eosinophils % 0.7 % (0-4.4); Hemoglobin 14.2 g/dL (12.0-15.0); Lymphocytes % 24.2 % (15.3-44.8); MCH 30.7 pg (27.0-35.0); MCHC 35.4 g/dL (32.0-36.0); MCV 86.7 fL (80-100); MPV 8.2 fL (7.6-11.3); Monocytes % 8.6 % (3.3-12.3); Neutrophils % 65.7 % (41.7-73.7); Nucleated Red Blood Cells % 0.1 % (0-0); Platelets 219 thou/uL (152-406); RBC Red Blood Cell Count 4.62 M/uL (3.86-4.86)
[2024-08-04 17:24] LABS: Albumin/Globulin Ratio 1.1 (1.1-1.8); Anion Gap 11.4 mEq/L (5.0-15.0); Bilirubin Direct 0.5 mg/dL (0-0.2); Bilirubin Indirect, Calculated 2.5 mg/dL (0.2-0.8); Globulin 3.6 g/dL (2.3-3.5); Potassium 3.4 mEq/L (3.5-5.1); Protein, Total 7.6 g/dL (6.4-8.2); Troponin High Sensitivity 3.4 pg/mL (<58.9)
--- NOTE | 2024-08-04 17:42 | EDPHYS ---
Physician Documentation [facility] Name: Emelia Haskins Age: 39 yrs Sex: Female : 1985 Arrival Date: 08/04/2024 Time: 16:29 Bed 2 Private MD: ED Physician Ryan Teresa HPI: 08/04 17:35 This 39 yrs old Female presents to ER via Ambulatory with complaints of rebeka Headache, Numbness Of Face, High Blood Pressure. 17:35 The patient complains of pain to the forehead. The patient describes the headache as rebeka aching, constant. Historical: - Allergies: 16:41 No Known Allergies; ld1 - PMHx: 16:41 Anxiety; ld1 - Immunization history:: Adult Immunizations up to date. - Infectious Disease History:: Denies. - Social history:: Smoking status: Patient denies any tobacco usage or history of. ROS: 17:36 Constitutional: Negative for fever, chills, and weight loss, Eyes: Negative for injury, rebeka pain, redness, and discharge, ENT: Negative for injury, pain, and discharge, Neck: Negative for injury, pain, and swelling, Cardiovascular: Negative for chest pain, palpitations, and edema, Respiratory: Negative for shortness of breath, cough, wheezing, and pleuritic chest pain, Abdomen/GI: Negative for abdominal pain, nausea, vomiting, diarrhea, and constipation, Back: Negative for injury and pain, : Negative for injury, bleeding, discharge, and swelling, Skin: Negative for injury, rash, and discoloration, Psych: Negative for depression, anxiety, suicide ideation, homicidal ideation, and hallucinations, Allergy/Immunology: Negative for hives, rash, and allergies, Endocrine: Negative for neck swelling, polydipsia, polyuria, polyphagia, and marked weight changes, Hematologic/Lymphatic: Negative for swollen nodes, abnormal bleeding, and unusual bruising, 17:36 MS/extremity: Positive for decreased range of motion, paresthesias, of the left arm and left leg, Exam: 17:36 Radiologist reports: see report rebeka 17:36 Constitutional: This is a well developed, well nourished patient who is awake, alert, and in no acute distress. Head/Face: Normocephalic, atraumatic. Eyes: Pupils equal round and reactive to light, extra-ocular motions intact. Lids and lashes normal. Conjunctiva and sclera are non-icteric and not injected. Cornea within normal limits. Periorbital areas with no swelling, redness, or edema. ENT: Nares patent. No nasal discharge, no septal abnormalities noted. Tympanic membranes are normal and external auditory canals are clear. Oropharynx with no redness, swelling, or masses, exudates, or evidence of obstruction, uvula midline. Mucous membranes moist. Neck: Trachea midline, no thyromegaly or masses palpated, and no cervical lymphadenopathy. Supple, full range of motion without nuchal rigidity, or vertebral point tenderness. No Meningismus. Chest/axilla: Normal chest wall appearance and motion. Nontender with no deformity. No lesions are appreciated. Cardiovascular: Regular rate and rhythm with a normal S1 and S2. No gallops, murmurs, or rubs. Normal PMI, no JVD. No pulse deficits. Respiratory: Lungs have equal breath sounds bilaterally, clear to auscultation and percussion. No rales, rhonchi or wheezes noted. No increased work of breathing, no retractions or nasal flaring. Abdomen/GI: Soft, non-tender, with normal bowel sounds. No distension or tympany. No guarding or rebound. No evidence of tenderness throughout. Back: No spinal tenderness. No costovertebral tenderness. Full range of motion. Skin: Warm, dry with normal turgor. Normal color with no rashes, no lesions, and no evidence of cellulitis. MS/ Extremity: Pulses equal, no cyanosis. Neurovascular intact. Full, normal range of motion. Psych: Awake, alert, with orientation to person, place and time. Behavior, mood, and affect are within normal limits. 17:36 ECG was reviewed by the Attending Physician. Vital Signs: 16:41 BP 175 / 91; Pulse 106; Resp 18; Temp 97.2(TE); Pulse Ox 99% on R/A; Weight 79.83 kg; ld1 Height 5 ft. 1 in. ; Pain 0/10; 17:01 BP 144 / 84; Pulse 91; Resp 16; Pulse Ox 98% on R/A; rs5 18:07 BP 139 / 73; Pulse 97; Resp 17; Pulse Ox 98% on R/A; rs5 19:10 BP 130 / 78; Pulse 68; Resp 17 S; Pulse Ox 100% on R/A; ha1 20:10 BP 136 / 88; Pulse 67; Resp 17 S; Temp 97.9(T); Pulse Ox 98% on R/A; ha1 16:41 Body Mass Index 33.25 (79.83 kg, 154.94 cm) ld1 16:41 Pain Scale: Adult ld1 NIH Stroke Scale Scores: 17:00 NIHSS Score: 1 aa5 18:04 NIHSS Score: 1 rebeka Zoe Coma Score: 17:38 Eye Response: spontaneous(4). Motor Response: obeys commands(6). Verbal Response: rebeka oriented(5). Total: 15. MDM: 16:43 Patient medically screened. rebeka 17:38 Differential diagnosis: cerebral vascular accident, epidural hematoma, TIA, Dementia, rebeka paralysis, Parkinson disease, metabolic disorder, drug effects, hypertensive headache, hypoglycemia, hyponatremia, intracerebral hemorrhage, sinusitis, subarachnoid bleed, subdural hematoma, temporal arteritis, tension headache, trigeminal neuralgia, uremia, vasomotor headache. TNKase (Tenecteplase) Screening: Not Applicable. Data reviewed: vital signs, nurses notes, lab test result(s), EKG, radiologic studies, CT scan, plain films. Consideration of Admission/Observation Escalation of care including admission/observation considered. I considered the following discharge prescriptions or medication management in the emergency department Medications were administered in the Emergency Department. See MAR. Independent interpretation of the following test(s) in the Emergency Department EKG: See my EKG interpretation above. Test considered but Not performed: MRI: mri not available. Historians other than the Patient: pt well informed. Care significantly affected by the following chronic conditions: anxiety. Counseling: I had a detailed discussion with the patient and/or guardian regarding the historical points, exam findings, and any diagnostic results supporting the discharge/admit diagnosis, the presence of at least one elevated blood pressure reading (>120/80) during this emergency department visit, lab results, radiology results, the need to transfer to another facility, for higher level of care, [facility] does not immediately have the required specialist. 08/04 16:45 Order name: Basic Metabolic Panel; Complete Time: 17:[address] [facility] 08/04 16:45 Order name: CBC with Diff; Complete Time: 17:[address] [facility] 08/04 16:45 Order name: LFT's; Complete Time: 17:[address] [facility] 08/04 16:45 Order name: Magnesium; Complete Time: 17:[address] [facility] 08/04 16:45 Order name: NT PRO-BNP; Complete Time: 17:[address] [facility] 08/04 16:45 Order name: Troponin HS; Complete Time: 17:[address] [facility] 08/04 16:45 Order name: Urinalysis w/ reflexes; Complete Time: 20:[address] [facility] 08/04 16:45 Order name: Lipase; Complete Time: 17:[address] [facility] 08/04 16:46 Order name: PREGU; Complete Time: 20:[address] [facility] 08/04 17:35 Order name: CRP; Complete Time: 20:[address] [facility] 08/04 16:45 Order name: XRAY Chest (1 view); Complete Time: 20:[address] [facility] 08/04 16:45 Order name: CT Head Brain wo Cont; Complete Time: 18:[address] [facility] 08/04 16:45 Order name: CT Neck Angio; Complete Time: 18:[address] [facility] 08/04 16:46 Order name: MRI Stroke Protocol [facility] 08/04 17:11 Order name: Head angio; Complete Time: 18:18 [facility] 08/04 16:45 Order name: Cardiac monitoring; Complete Time: 17:[address] [facility] 08/04 16:45 Order name: EKG - Nurse/Tech; Complete Time: 17:[address] [facility] 08/04 16:45 Order name: IV Saline Lock; Complete Time: 17:[address] [facility] 08/04 16:45 Order name: Labs collected and sent; Complete Time: 17:[address] [facility] 08/04 16:45 Order name: O2 Per Protocol; Complete Time: 17:[address] [facility] 08/04 16:45 Order name: O2 Sat Monitoring; Complete Time: 17:[address] [facility] EC:36 Rate is 80 beats/min. Rhythm is regular. QRS [place] is Normal. AR interval is normal. QRS rebeka interval is normal. QT interval is normal. No Q waves. T waves are Normal. Clinical impression: Normal ECG and No evidence of ischemia. Interpreted by me. Reviewed by me. Administered Medications: 17:12 Drug: foLIC Acid IVPB 1 mg IVPB once Route: IVPB; Site: right antecubital; aa5 19:00 Follow up: Response: No adverse reaction; IV Status: Completed infusion ha1 17:13 Drug: NS 0.9% IV 1000 ml IV at 1 bolus Per protocol; 1000 mL bolus Route: IV; Rate: 1 aa5 bolus; Site: right antecubital; 20:40 Follow up: Response: No adverse reaction; IV Status: Completed infusion; IV Intake: ha1 1000ml 17:55 Drug: Famotidine IVP 40 mg IVP once; dilute with 10 mL 0.9% NaCl; give over 2 minutes rs5 Route: IVP; Site: left antecubital; 19:10 Follow up: Response: No adverse reaction ha1 17:55 Drug: diphenhydrAMINE IVP 25 mg IVP once Route: IVP; Site: left antecubital; rs5 19:10 Follow up: Response: No adverse reaction; Marked relief of symptoms ha1 17:55 Drug: diphenhydrAMINE IVP 25 mg IVP once Route: IVP; Site: left antecubital; rs5 19:10 Follow up: Response: No adverse reaction ha1 19:10 Follow up: Response: No adverse reaction ha1 17:55 Drug: MethylPrednisoLONE IVP 125 mg IVP once Route: IVP; Site: left antecubital; rs5 19:10 Follow up: Response: No adverse reaction ha1 18:20 Drug: Aspirin PO Chewable Tablet 324 mg PO once; 81 mg tablets x [address] NEGATIVE rs5 Route: PO; 19:10 Follow up: Response: No adverse reaction ha1 18:49 Drug: Clopidogrel PO 300 mg PO once Route: PO; aa5 19:10 Follow up: Response: No adverse reaction ha1 20:23 Not Given (Patient Refused): potassiumeffervescent tablet 25 meq PO once; dissolve in 4 ha1 ounces of water or juice Disposition Summary: 08/04/24 17:42 Transfer Ordered Notes: Transfer Location: [facility] rebeka Reason: Higher level of care rebeka Condition: Fair rebeka Problem: new rebeka Symptoms: have improved rebeka Accepting Physician: TO MAIRA MARTIN [facility](08/04/24 21:15) ha1 Diagnosis - Weakness rebeka - Cerebral infarction, unspecified - LEFT SIDE WEAKNESS, 24 HOURS rebeka - Hypokalemia rebeka Forms: - Medication Reconciliation Form rebeka - SBAR form rebeka NIH Stroke Scale - NIH Stroke Score Date: 08/04/2024 Time: 17:00 Total Score = 1 10. Dysarthria (speech clarity - read or repeat words) - 0(Normal) 11. Extinction and Inattention (visual/tactile/auditory/spatial/personal) - 0(No abnormality) 1a. Level of Consciousness (LOC) - 0(Alert) 1b. Level of Consciousness (LOC) (Month \T\ Age) - 0(Both) 1c. LOC Commands (Open \T\ Closes Eyes/Claim Technician) - 0(Both) 2. Best Gaze (Lateral Gaze Paresis) - 0(Normal) 3. Visual Field Loss - 0(No visual loss) 4. Facial Palsy - 0(Normal) 5a. Left Arm: Motor (10-second hold) - 0(No drift) 5b. Right Arm: Motor (10-second hold) - 0(No drift) 6a. Left Leg: Motor (5-second hold - always test supine) - 0(No drift) 6b. Right Leg: Motor (5-second hold - always test supine) - 0(No drift) 7. Limb Ataxia (finger/nose \T\ heel/monsalve - test with eyes open) - 0(Absent) 8. Sensory Loss (pinprick arms/legs/face) - 1(Mild to moderate loss) 9. Best Language: Aphasia (description/naming/reading) - 0(No aphasia) Initials: aa5 NIH Stroke Scale - NIH Stroke Score Date: 08/04/2024 Time: 18:04 Total Score = 1 10. Dysarthria (speech clarity - read or repeat words) - 0(Normal) 11. Extinction and Inattention (visual/tactile/auditory/spatial/personal) - 0(No abnormality) 1a. Level of Consciousness (LOC) - 0(Alert) 1b. Level of Consciousness (LOC) (Month \T\ Age) - 0(Both) 1c. LOC Commands (Open \T\ Closes Eyes/Claim Technician) - 0(Both) 2. Best Gaze (Lateral Gaze Paresis) - 0(Normal) 3. Visual Field Loss - 0(No visual loss) 4. Facial Palsy - 0(Normal) 5a. Left Arm: Motor (10-second hold) - 1(Drift) 5b. Right Arm: Motor (10-second hold) - 0(No drift) 6a. Left Leg: Motor (5-second hold - always test supine) - 0(No drift) 6b. Right Leg: Motor (5-second hold - always test supine) - 0(No drift) 7. Limb Ataxia (finger/nose \T\ heel/monsalve - test with eyes open) - 0(Absent) 8. Sensory Loss (pinprick arms/legs/face) - 0(Normal) 9. Best Language: Aphasia (description/naming/reading) - 0(No aphasia) Initials: [facility] Signatures: Dispatcher [employer] EDMS Ryan Teresa MD MD cha Calderon, Audri, RN RN aa5 Tameka Edgar RN RN ld1 Kiki Hardin, RN RN ha1 Elliot Nickerson, RN RN rs5 Corrections: (The following items were deleted from the chart) 16:45 16:45 BASIC METABOLIC PANEL+C.LAB.BRZ ordered. EDMS EDMS 16:45 16:45 CBC+H.LAB.BRZ ordered. EDMS EDMS 16:45 16:45 HEPATIC FUNCTION+C.LAB.BRZ ordered. EDMS EDMS 16:45 16:45 MAGNESIUM+C.LAB.BRZ ordered. EDMS EDMS 16:45 16:45 PROBNP+C.LAB.BRZ ordered. EDMS EDMS 16:45 16:45 PROTIME (+INR)+COAG.LAB.BRZ ordered. EDMS EDMS 16:45 16:45 Troponin High Sensitivity+C.LAB.BRZ ordered. EDMS EDMS 16:45 16:45 Urinalysis+U.LAB.BRZ ordered. EDMS EDMS 16:45 16:45 Chest Single View+RAD.RAD.BRZ ordered. EDMS EDMS 16:45 16:45 Head Brain Wo Cont+CT.RAD.BRZ ordered. EDMS EDMS 16:46 16:46 LIPASE+C.LAB.BRZ ordered. EDMS EDMS 16:46 16:46 Test, Urine+UC.LAB.BRZ ordered. EDMS EDMS 20:18 17:42 TO NEURO, [facility] rebeka rebeka 21:15 20:18 TO NEURO, [facility] rebeka ha1
--- NOTE | 2024-08-04 17:42 | ER ---
Nurse's Notes [facility] Name: Emelia Haskins Age: 39 yrs Sex: Female : 1985 Arrival Date: 08/04/2024 Time: 16:29 Bed 2 Private MD: Diagnosis: Weakness;Cerebral infarction, unspecified-LEFT SIDE WEAKNESS, 24 HOURS;Hypokalemia Presentation: 08/04 16:41 Chief complaint: Patient states: headache and dizziness since yesterday at 1630 - pt ld1 was grocery shopping and reports confusion and weakness. C/O left sided weakness/tingling to left arm, left side of face, left leg and foot. Coronavirus screen: At this time, the client does not indicate any symptoms associated with coronavirus-19. Ebola Screen: No symptoms or risks identified at this time. Initial Sepsis Screen: Does the patient meet any 2 criteria? No. Patient's initial sepsis screen is negative. Does the patient have a suspected source of infection? No. Patient's initial sepsis screen is negative. Risk Assessment: Do you want to hurt yourself or someone else? Patient reports no desire to harm self or others. Onset of symptoms was August 04, 2024. 16:41 Method Of Arrival: Ambulatory ld1 16:41 Acuity: FAIZA 2 ld1 17:00 An acute neurological deficit is present. Pre-hospital glucose is not applicable to aa5 this patient. Triage Assessment: 16:43 Headache History: Denies prior headaches. General: Appears in no apparent distress. ld1 comfortable, Behavior is calm, cooperative, appropriate for age. Pain: Complains of pain in face Pain does not radiate. Pain currently is 7 out of 10 on a pain scale. Quality of pain is described as pressure, Pain began 1 day ago. Is continuous, Also complains of no other associated symptoms. EENT: No signs and/or symptoms were reported regarding the EENT system. Neuro: Level of Consciousness is awake, alert, obeys commands, Oriented to person, place, time, situation, Appropriate for age. Neuro: Reports dizziness, headache numbness weakness. Cardiovascular: Capillary refill < 3 seconds Patient's skin is warm and dry. Respiratory: Airway is patent Respiratory effort is even, unlabored. GI: Abdomen is round non-distended. : No signs and/or symptoms were reported regarding the genitourinary system. Derm: No signs and/or symptoms reported regarding the dermatologic system. Musculoskeletal: No signs and/or symptoms reported regarding the musculoskeletal system. Stroke Activation: Symptom onset > 6 hours Physician: ED Attending; Name: ; Notified At: ; Arrived At: Physician: Mid-Level Provider; Name: ; Notified At: ; Arrived At: Physician: [not used]; Name: ; Notified At: ; Arrived At: Physician: [not used]; Name: ; Notified At: ; Arrived At: Physician: [not used]; Name: ; Notified At: ; Arrived At: Historical: - Allergies: 16:41 No Known Allergies; ld1 - PMHx: 16:41 Anxiety; ld1 - Immunization history:: Adult Immunizations up to date. - Infectious Disease History:: Denies. - Social history:: Smoking status: Patient denies any tobacco usage or history of. Screenin:45 [facility] ED Fall Risk Assessment (Adult) History of falling in the last 3 months, rs5 including since admission No falls in past 3 months (0 pts) Confusion or Disorientation No (0 pts) Intoxicated or Sedated No (0 pts) Impaired Gait No (0 pts) Mobility Assist Device Used No (0 pt) Altered Elimination No (0 pt) Score/Fall Risk Level 0 - 2 = Low Risk Oriented to surroundings, Maintained a safe environment. Abuse screen: Denies threats or abuse. Nutritional screening: No deficits noted. Tuberculosis screening: No symptoms or risk factors identified. Assessment: 16:45 General: Appears in no apparent distress. uncomfortable, Behavior is calm, cooperative. rs5 Pain: Complains of pain in head Pain currently is 3 out of 10 on a pain scale. Quality of pain is described as aching, Is continuous. 16:45 Neuro: Level of Consciousness is awake, alert, obeys commands, Oriented to person, rs5 place, time, situation, Reports numbness in face weakness in left arm and left leg. Cardiovascular: Patient's skin is warm and dry. Respiratory: Airway is patent Respiratory effort is even, unlabored, Respiratory pattern is regular, symmetrical. GI: Abdomen is round non-distended, Abd is soft and non tender X 4 quads. : No signs and/or symptoms were reported regarding the genitourinary system. EENT: No signs and/or symptoms were reported regarding the EENT system. Derm: Skin is intact, Skin is pink, warm \\T\\ dry. Musculoskeletal: Range of motion: intact in all extremities. 17:00 VAN Scoring: Arm Drift: Patients demonstrates NO arm weakness. Patient is VAN Negative. aa5 Visual Disturbance: No visual disturbance noted. Aphasia: No aphasia noted. Neglect: No neglect noted. TNKase (Tenecteplase) Screening: Contraindications: Patient reports onset of signs and symptoms of stroke greater than 6 hours ago: Yes. 17:00 General: Appears uncomfortable, Behavior is calm, cooperative. Pain: Complains of pain aa5 in forehead Pain does not radiate. Pain currently is 3 out of 10 on a pain scale. Quality of pain is described as aching, pressure, Pain began 1 day ago. Is continuous. Neuro: Level of Consciousness is awake, alert, obeys commands, Oriented to person, place, time, situation, Body Rolling Machine Tender are weak on left Weakness in left hand(s) leg(s) Speech is normal, Facial symmetry appears normal, Reports headache frontal area, numbness in left arm, left leg, and left side of face. Cardiovascular: Heart tones S1 S2 present Rhythm is regular. Respiratory: Airway is patent Respiratory effort is even, unlabored, Respiratory pattern is regular, symmetrical. GI: Abdomen is round non-distended, Bowel sounds present X 4 quads. Abd is soft and non tender X 4 quads. : No signs and/or symptoms were reported regarding the genitourinary system. EENT: No signs and/or symptoms were reported regarding the EENT system. Derm: Skin is pink, warm \\T\\ dry. Musculoskeletal: Range of motion: intact in all extremities. 17:00 Reassessment: Pt denies any falls or injuries. . aa5 17:35 Reassessment: Pt in radiology . aa5 17:48 Reassessment: pt back from CT scan, rash noted to face, neck and chest, pt reports rs5 itrhciness to rash. Denies chest pain or SOB. provider notified . 18:00 [place] Swallow Protocol Exclusion Criteria: Exclusion Criteria Result: Proceed Brief aa5 Cognitive Screen What is your name? Normal, Where are you right now? Normal, What year is it? Normal. Oral Mechanism Examination Facial Symmetry: Normal, Motion: Normal, Lip Closure: Normal, Oral Mechanism Result: Normal. 3 oz Water Swallow Challenge: Pt able to drink all water without stopping, coughing, choking or throat clearing: Yes Result: RIGO MARQUEZ Notified: Ryan Teresa MD. 18:00 Reassessment: Patient is alert, oriented x 3, equal unlabored respirations, skin aa5 warm/dry/pink. 18:00 Neuro: Level of Consciousness is awake, alert, obeys commands, Oriented to person, aa5 place, time, situation, Body Rolling Machine Tender are weak on left Weakness in left hand(s) leg(s) Speech is normal, Facial symmetry appears normal, Reports headache frontal area, numbness in left arm and left leg and left side of face weakness in left arm and left leg. 18:07 Reassessment: Patient and/or family updated on plan of care and expected duration. Pain rs5 level reassessed. Patient is alert, oriented x 3, equal unlabored respirations, skin warm/dry/pink. 19:10 General: Appears comfortable, Behavior is calm, cooperative. Pain: Denies pain. Neuro: ha1 Level of Consciousness is awake, alert, obeys commands, Oriented to person, place, time, situation, Body Rolling Machine Tender are weak on left Weakness in left hand(s) leg(s) Speech is normal, Reports numbness in left leg and left arm. Cardiovascular: Heart tones S1 S2 present Patient's skin is warm and dry. Rhythm is sinus rhythm. Respiratory: Airway is patent Respiratory effort is even, unlabored, Respiratory pattern is regular, symmetrical. GI: Abdomen is round non-distended, Bowel sounds present X 4 quads. Abd is soft and non tender X 4 quads. : No signs and/or symptoms were reported regarding the genitourinary system. Derm: Skin is intact, Skin is pink, warm \\T\\ dry. Musculoskeletal: Range of motion: intact in all extremities. 19:15 Reassessment: attempted to give report. ha1 19:20 Reassessment: attempted to give report. ha1 19:32 Reassessment: CALLED TRANSFERRING CENTER TO NOTIFIED THEM OF UNSUCCESSFUL ATTEMPTS TO ha1 GIVE REPORT. TRANSFERRING CENTER STATED " I WILL NOTIFIED PLATFORM BEATER BECAUSE I AM NOT ABLE REACH ANYONE AT THE NURSING STATION, I WILL HAVE THE NURSE TO CALL YOU BACK TO GET REPORT". 19:32 Reassessment: NOTIFIED CHARGE NURSE. ha1 19:57 Reassessment: REPORT GIVEN TO RECEIVING NURSE YUKI SOW. ha1 Vital Signs: 16:41 BP 175 / 91; Pulse 106; Resp 18; Temp 97.2(TE); Pulse Ox 99% on R/A; Weight 79.83 kg; ld1 Height 5 ft. 1 in. ; Pain 0/10; 17:01 BP 144 / 84; Pulse 91; Resp 16; Pulse Ox 98% on R/A; rs5 18:07 BP 139 / 73; Pulse 97; Resp 17; Pulse Ox 98% on R/A; rs5 19:10 BP 130 / 78; Pulse 68; Resp 17 S; Pulse Ox 100% on R/A; ha1 20:10 BP 136 / 88; Pulse 67; Resp 17 S; Temp 97.9(T); Pulse Ox 98% on R/A; ha1 16:41 Body Mass Index 33.25 (79.83 kg, 154.94 cm) ld1 16:41 Pain Scale: Adult ld1 Zoe Coma Score: 17:38 Eye Response: spontaneous(4). Motor Response: obeys commands(6). Verbal Response: rebeka oriented(5). Total: 15. NIH Stroke Scale Scores: 17:00 NIHSS Score: 1 aa5 18:04 NIHSS Score: 1 rebeka ED Course: 16:31 Patient arrived in ED. mr 16:42 Triage completed. ld1 16:43 Ryan Teresa MD is Attending Physician. rebeka 16:43 Arm band placed on right wrist. ld1 16:45 Patient has correct armband on for positive identification. Placed in gown. Bed in low rs5 position. Call light in reach. Side rails up X2. 16:45 No provider procedures requiring assistance completed. rs5 16:57 Jennifer Brand, RN is Primary Nurse. aa5 17:00 Initial lab(s) drawn, by ED staff, sent to lab. Inserted saline lock: 20 gauge in right aa5 antecubital area, using aseptic technique. Blood collected. Flushed with 10 mL NS. 17:24 XRAY Chest (1 view) In Process Unspecified. EDMS 17:54 CT Head Brain wo Cont In Process Unspecified. EDMS 17:54 CT Neck Angio In Process Unspecified. EDMS 17:54 Head angio In Process Unspecified. EDMS 17:55 initiated transfer with [facility] spoke with Shawna. vk 18:16 [address] to Dr. Taveras to [facility] RM [id number]. vk 19:00 Report given to YUKI Swanson. aa5 19:00 Urine collected: clean catch specimen, sent to lab. aa5 20:18 initiated transport with EMS spoke with Aiden. vk 20:40 Provided Education on: NEED FOR TRANSFER . ha1 20:40 Patient transferred, IV remains in place. ha1 Administered Medications: 17:12 Drug: foLIC Acid IVPB 1 mg IVPB once Route: IVPB; Site: right antecubital; aa5 19:00 Follow up: Response: No adverse reaction; IV Status: Completed infusion ha1 17:13 Drug: NS 0.9% IV 1000 ml IV at 1 bolus Per protocol; 1000 mL bolus Route: IV; Rate: 1 aa5 bolus; Site: right antecubital; 20:40 Follow up: Response: No adverse reaction; IV Status: Completed infusion; IV Intake: ha1 1000ml 17:55 Drug: Famotidine IVP 40 mg IVP once; dilute with 10 mL 0.9% NaCl; give over 2 minutes rs5 Route: IVP; Site: left antecubital; 19:10 Follow up: Response: No adverse reaction ha1 17:55 Drug: diphenhydrAMINE IVP 25 mg IVP once Route: IVP; Site: left antecubital; rs5 19:10 Follow up: Response: No adverse reaction; Marked relief of symptoms ha1 17:55 Drug: diphenhydrAMINE IVP 25 mg IVP once Route: IVP; Site: left antecubital; rs5 19:10 Follow up: Response: No adverse reaction ha1 19:10 Follow up: Response: No adverse reaction ha1 17:55 Drug: MethylPrednisoLONE IVP 125 mg IVP once Route: IVP; Site: left antecubital; rs5 19:10 Follow up: Response: No adverse reaction ha1 18:20 Drug: Aspirin PO Chewable Tablet 324 mg PO once; 81 mg tablets x [address] NEGATIVE rs5 Route: PO; 19:10 Follow up: Response: No adverse reaction ha1 18:49 Drug: Clopidogrel PO 300 mg PO once Route: PO; aa5 19:10 Follow up: Response: No adverse reaction ha1 20:23 Not Given (Patient Refused): potassiumeffervescent tablet 25 meq PO once; dissolve in 4 ha1 ounces of water or juice Medication: 19:00 VIS not applicable for this client. aa5 Intake: 20:40 IV: 1000ml; Total: 1000ml. ha1 Outcome: 17:42 ER care complete, transfer ordered by MD. staley 20:40 Transferred by ground EMS to [facility], [facility], Transfer form completed. ha1 X-rays sent w/ patient. 20:40 Condition: stable 20:40 Instructed on the need for transfer, Demonstrated understanding of instructions, 20:45 Patient left the ED. ha1 NIH Stroke Scale - NIH Stroke Score Date: 08/04/2024 Time: 17:00 Total Score = 1 10. Dysarthria (speech clarity - read or repeat words) - 0(Normal) 11. Extinction and Inattention (visual/tactile/auditory/spatial/personal) - 0(No abnormality) 1a. Level of Consciousness (LOC) - 0(Alert) 1b. Level of Consciousness (LOC) (Month \\T\\ Age) - 0(Both) 1c. LOC Commands (Open \\T\\ Closes Eyes/Trial Management Associate) - 0(Both) 2. Best Gaze (Lateral Gaze Paresis) - 0(Normal) 3. Visual Field Loss - 0(No visual loss) 4. Facial Palsy - 0(Normal) 5a. Left Arm: Motor (10-second hold) - 0(No drift) 5b. Right Arm: Motor (10-second hold) - 0(No drift) 6a. Left Leg: Motor (5-second hold - always test supine) - 0(No drift) 6b. Right Leg: Motor (5-second hold - always test supine) - 0(No drift) 7. Limb Ataxia (finger/nose \\T\\ heel/monsalve - test with eyes open) - 0(Absent) 8. Sensory Loss (pinprick arms/legs/face) - 1(Mild to moderate loss) 9. Best Language: Aphasia (description/naming/reading) - 0(No aphasia) Initials: aa5 NIH Stroke Scale - NIH Stroke Score Date: 08/04/2024 Time: 18:04 Total Score = 1 10. Dysarthria (speech clarity - read or repeat words) - 0(Normal) 11. Extinction and Inattention (visual/tactile/auditory/spatial/personal) - 0(No abnormality) 1a. Level of Consciousness (LOC) - 0(Alert) 1b. Level of Consciousness (LOC) (Month \\T\\ Age) - 0(Both) 1c. LOC Commands (Open \\T\\ Closes Eyes/Trial Management Associate) - 0(Both) 2. Best Gaze (Lateral Gaze Paresis) - 0(Normal) 3. Visual Field Loss - 0(No visual loss) 4. Facial Palsy - 0(Normal) 5a. Left Arm: Motor (10-second hold) - 1(Drift) 5b. Right Arm: Motor (10-second hold) - 0(No drift) 6a. Left Leg: Motor (5-second hold - always test supine) - 0(No drift) 6b. Right Leg: Motor (5-second hold - always test supine) - 0(No drift) 7. Limb Ataxia (finger/nose \\T\\ heel/monsalve - test with eyes open) - 0(Absent) 8. Sensory Loss (pinprick arms/legs/face) - 0(Normal) 9. Best Language: Aphasia (description/naming/reading) - 0(No aphasia) Initials: rebeka Signatures: Dispatcher [employer] EDMS Ryan Teresa MD MD cha Rivera, Amy, Reg Reg mr BrandJennifer gonzalez, RN RN aa5 Tameka Edgar, YUKI RN ld1 Kiki Hardin, YUKI RN ha1 Elliot Nickerson, RN RN rs5 Jeanette Harrison Corrections: (The following items were deleted from the chart) 17:14 16:45 Neuro: Level of Consciousness is awake, alert, obeys commands, Oriented rs5 to person, place, time, situation, rs5 21:16 21:15 Patient left the ED. ha1 ha1
[2024-08-04] MEDS ORDERED: DIPHENHYDRAMINE 50 MG/ML VIAL ONE (17:51)
[2024-08-04] MEDS ORDERED: METHYLPREDNISOLONE 125 MG INJ ONE (17:51)
[2024-08-04] MEDS ORDERED: ASPIRIN 81 MG CHEWABLE TABLET ONE (17:51)
[2024-08-04] MEDS ORDERED: FAMOTIDINE 20 MG/2 ML VIAL IV ONE (17:52)
--- NOTE | 2024-08-04 18:04 | RAD REPORT ---
EXAM DESCRIPTION: CT - Head Brain Wo Cont - 08/04/2024 5:52 pm CLINICAL HISTORY: Dizziness;Headache COMPARISON: Head angio dated 08/04/2024; Head Brain Wo Cont dated 12/22/2023 TECHNIQUE: Noncontrast head CT images were obtained without IV contrast. Multiplanar reformats were generated and reviewed. All CT scans are performed using dose optimization technique as appropriate and may include automated exposure control or mA/KV adjustment according to patient size. FINDINGS: No intracranial hemorrhage, mass, or edema. Midline structures are unremarkable. Normal ventricular caliber for age. Boss-white matter differentiation is preserved, without evidence of acute infarct. No abnormal extra- axial fluid collections. Mastoid air cells and visualized portions of the paranasal sinuses are clear. No acute bony findings. IMPRESSION: No evidence of an acute intracranial process.
--- NOTE | 2024-08-04 18:14 | RAD REPORT ---
EXAM DESCRIPTION: CT - Neck Angio - 08/04/2024 5:52 pm CLINICAL HISTORY: PAIN COMPARISON: Chest Single View dated 08/04/2024; Chest Pa And Lat (2 Views) dated 09/03/2019 TECHNIQUE: Axial CT angiography images of the neck was performed with multiplanar and maximum intens ity projection reconstructions. Images performed following intravenous administration of iodinated co ntrast. All CT scans are performed using dose optimization technique as appropriate and may include automated exposure control or mA/KV adjustment according to patient size. Quantification of carotid stenosis, if any, is performed according to NASCET criteria. FINDINGS: A left aortic arch is identified with normal three vessel configuration of the great vesse ls. No significant flow abnormality is seen of the common carotid bilaterally. No significant stenosis is identified involving the cervical segments of both internal carotid arteri es. Normal flow is seen within both vertebral arteries. IMPRESSION: No significant flow abnormality of the neck vessels is identified. CAROTID STENOSIS REFERENCE USING NASCET CRITERIA: % ICA stenosis = (1 - narrowest ICA diameter/diameter of distal cervical ICA) x 100. Mild - <50% stenosis. Moderate - 50-69% stenosis. Severe - 70-94% stenosis. Near occlusion - 95-99% stenosis. Occluded - 100% stenosis.
--- NOTE | 2024-08-04 18:17 | RAD REPORT ---
EXAM DESCRIPTION: CT - Head angio - 08/04/2024 5:52 pm CLINICAL HISTORY: AMS COMPARISON: Head Brain Wo Cont dated 12/22/2023; HEAD BRAIN W O CONTRAST dated 08/31/2012; Neck Angio dated 08/04/2024; Head Brain Wo Cont dated 08/04/2024 TECHNIQUE: Axial CT angiography images of the head was performed with multiplanar and maximum intens ity projection reconstructions. Images performed following intravenous administration of iodinated c ontrast. All CT scans are performed using dose optimization technique as appropriate and may include automated exposure control or mA/KV adjustment according to patient size. FINDINGS: No evidence of large vessel occlusion. No evidence of aneurysm or dissection flap is detec ronit. No flow-limiting stenosis or vascular malformation identified. Antegrade flow is seen in the vertebral arteries. The vertebral arteries are codominant. The visualized dural venous sinuses are grossly patent. IMPRESSION: No evidence of large vessel occlusion or flow-limiting stenosis.
--- NOTE | 2024-08-04 18:18 | RAD REPORT ---
EXAM DESCRIPTION[facility] 5:22 pm CLINICAL HISTORY: COUGH COMPARISON: Chest Single View dated 12/22/2023; Chest Pa And Lat (2 Views) dated 09/03/2019 TECHNIQUE: Portable AP view of the chest. FINDINGS: The lungs are clear. No pneumothorax or effusion. The cardiomediastinal contours are unre markable. IMPRESSION: No acute cardiopulmonary process.
[2024-08-04] MEDS ORDERED: CLOPIDOGREL 75 MG TABLET ONE (18:43)
[2024-08-04 19:13] LABS: Specific Gravity > 1.030 (1.005-1.030); Urine Bilirubin NEGATIVE (Negative); Urine Blood Negative (Negative); Urine Clarity Clear (Clear); Urine Color Colorless (Yellow); Urine Glucose NEGATIVE (Negative); Urine Ketones 1+ (Negative); Urine Microscopic Reflex YN NO UMIC; Urine Nitrite NEGATIVE (Negative); Urine Protein NEGATIVE (Negative); Urine Urobilinogen Normal (Normal); Urine pH 7.5 (5.0-7.0)
[2024-08-04 21:48] VITALS: BP 136/88; TEMP 97.9; O2SAT 98
--- NOTE | 2024-08-07 17:08 | EKG ---
Test Date: 2024-08-04 Test Time: 17:00:49 Web Site Designer: CYN MEASUREMENT RESULTS: Intervals: Rate: 80 CT: 148 QRSD: 74 QT: 376 QTc: 433 [place]: P: 35 CT: 148 QRS: 44 T: 36 INTERPRETIVE STATEMENTS: Normal sinus rhythm Normal ECG Compared to ECG 12/22/2023 17:42:16 No significant changes Electronically Signed On 08-07-24 17:00:52 CDT by Luidn Kinsey
== END 2024-08-04 21:15 | disposition short-term general hospital (02) ==
LOC: ER 16:29
DX: I63.9 Cerebral infarction, unspecified (principal); E87.6 Hypokalemia; R29.701 NIHSS score 1
CPT/HCPCS: 36415; 70450; 70496; 70498; 71045; 80048; 80076; 81003; 81025; 83690; 83735; 83880; 84484; 85025; 86140; 93005; 96361; 96365; 96366; 96375; 99285; J1200; J2919; J7030; Q9967